=== PATIENT | female | born 1990 | race Caucasian/White ===

== ENCOUNTER → 2020-06-28 | Outpatient (CLI) | payer OTHER ==
[~2020-06-28] MED LIST: ALEVE220 MG PO; ASPIRIN; BENTYL 20 MG TA20 M1 PO; CYCLOBENZAPRINE5 MG PO; HYDROCODONE-AP1 EAC6 PO; IBUPROFEN 200200 M1 PO; KEFLEX500 MG PO; NEURONTIN 300300 M1 PO; NORCO 5-325 TA1 EACH PO; ONDANSETRON HCL4 M2 PO; TRAMADOL; TRAMADOL 50 MG50 MG PO; UNICOMPLEX M TA1 TA1 PO; ZPAK PO
== END ==
LOC: ULTRA 10:54
PROVIDERS: ATTEND Nurse Practitioner
DX: M79.89 Other specified soft tissue disorders (principal)